=== PATIENT | male | born 1955 | race Caucasian/White ===

== ENCOUNTER 2019-01-28 16:00 | Outpatient (CLI) | payer BC | END 2019-01-28 16:01 | disposition home or self-care (01) | LOC: SLEEPLAB 16:00 | PROVIDERS: ATTEND Family Medicine | DX: G47.33 Obstructive sleep apnea (adult) (pediatric) (principal); R53.83 Other fatigue; R06.83 Snoring; F41.9 Anxiety disorder, unspecified | CPT/HCPCS: 95806 ==

== ENCOUNTER 2019-05-27 15:14 | Outpatient (CLI) | payer BC ==
--- NOTE | 2019-05-27 15:56 | ULT ---
US Renal Bilateral STANDARD: 05/27/2019 12:00 AM CLINICAL HISTORY: Chronic kidney disease. Stage III STUDY: Renal ultrasound COMPARISON: None. FINDINGS: Right kidney: Echogenicity: Normal. Masses/cysts: None. Hydronephrosis: None. Calcifications: None. Length: 10.0 cm Left kidney: Echogenicity: Normal. Masses/cysts: 1.1 cm hypoechoic region in the left kidney likely represents a cyst. Hydronephrosis: None. Calcifications: None. Length: 10.9 cm Limited visualization of the urinary bladder is unremarkable. The prostate is enlarged. IMPRESSION: Left renal cyst
== END 2019-05-27 15:15 | disposition home or self-care (01) ==
LOC: BICULT 15:14
PROVIDERS: ATTEND Family Medicine
DX: N18.3 Chronic kidney disease, stage 3 (moderate) (principal); N28.1 Cyst of kidney, acquired
CPT/HCPCS: 76770

== ENCOUNTER 2022-05-13 19:30 | Outpatient (CLI) | payer MEDICARE, OTHER | END 2022-05-13 19:31 | disposition home or self-care (01) | LOC: SLEEPLAB 19:30 | PROVIDERS: ATTEND Family Medicine | DX: G47.33 Obstructive sleep apnea (adult) (pediatric) (principal); R53.83 Other fatigue; R06.83 Snoring; F41.9 Anxiety disorder, unspecified; I48.91 Unspecified atrial fibrillation; G47.10 Hypersomnia, unspecified; G47.00 Insomnia, unspecified; G47.31 Primary central sleep apnea | CPT/HCPCS: 95810 ==

== ENCOUNTER 2022-06-05 19:30 | Outpatient (CLI) | payer MEDICARE, OTHER | END 2022-06-05 19:31 | disposition home or self-care (01) | LOC: SLEEPLAB 19:30 | PROVIDERS: ATTEND Family Medicine | DX: G47.33 Obstructive sleep apnea (adult) (pediatric) (principal); R53.83 Other fatigue; R06.83 Snoring; F41.9 Anxiety disorder, unspecified; G47.10 Hypersomnia, unspecified; E66.9 Obesity, unspecified; Z68.28 Body mass index [BMI] 28.0-28.9, adult; G47.31 Primary central sleep apnea | CPT/HCPCS: 95811 ==

== ENCOUNTER 2022-08-09 07:56 | Outpatient (CLI) | payer MEDICARE, OTHER | END 2022-08-09 07:57 | disposition home or self-care (01) | LOC: LABBT 07:56 | PROVIDERS: ATTEND Physician Assistant Medical | DX: R13.10 Dysphagia, unspecified (principal); K21.9 Gastro-esophageal reflux disease without esophagitis; Z20.822 Contact with and (suspected) exposure to COVID-19 | CPT/HCPCS: 87811 ==

== ENCOUNTER 2022-08-12 09:10 | Outpatient (CLI) | payer MEDICARE, OTHER | END 2022-08-12 09:11 | disposition home or self-care (01) | LOC: RAD 09:10 | PROVIDERS: ATTEND Physician Assistant Medical | DX: R13.10 Dysphagia, unspecified (principal); K21.9 Gastro-esophageal reflux disease without esophagitis | CPT/HCPCS: 74230 ==

== ENCOUNTER 2024-05-21 15:50 | Outpatient (CLI) | payer MEDICARE, OTHER | END 2024-05-21 15:51 | disposition home or self-care (01) | LOC: ULT 15:50 | PROVIDERS: ATTEND Urology | DX: N18.31 Chronic kidney disease, stage 3a (principal); N28.1 Cyst of kidney, acquired; N39.43 Post-void dribbling | CPT/HCPCS: 76770 ==

== ENCOUNTER 2025-01-13 06:13 | Day surgery (SDC) | payer MEDICARE, OTHER ==
[2025-01-03 09:24] VITALS: BMI 27.6
[2025-01-13] MEDS ORDERED: LevoFLOXacin D5W 500 mg (100 mL) BAG ONE (06:27)
[2025-01-13] MEDS ORDERED: Lidocaine 1% MPF 2 ML VIAL ONE (06:27)
[2025-01-13] MEDS ORDERED: Ondansetron PF 4 MG/2 ML Vial ONE (07:01)
[2025-01-13] MEDS ORDERED: Lidocaine 2% PF 5 ML VIAL ONE (07:01)
[2025-01-13] MEDS ORDERED: Dexamethasone 4 mg/ml Vial ONE (07:01)
[2025-01-13] MEDS ORDERED: PROPOFOL 20 ML ONE (07:01)
[2025-01-13] MEDS ORDERED: fentaNYL PF 100 MCG/2 ML SYRINGE ONE (07:01)
[2025-01-13] MEDS ORDERED: Midazolam HCl 2 mg/2 ml Vial ONE (07:34)
[2025-01-13] MEDS ORDERED: ePHEDrine Sulfate 50 MG/10 ML VIAL ONE (07:56)
[2025-01-13] MEDS ORDERED: Glycopyrrolate 0.2 MG/ML 5 ML SYRINGE ONE (08:12)
[2025-01-13] MEDS ORDERED: fentaNYL 50 mcg/mL 1 mL Vial ONE (09:11)
[2025-01-13] MEDS ORDERED: Oxybutynin 5 MG TAB ONE (10:17)
[2025-01-13] MEDS ORDERED: Phenazopyridine HCl 100 MG TAB ONE (10:17)
== END 2025-01-13 14:10 | disposition home or self-care (01) ==
LOC: SDC 06:13
PROVIDERS: ATTEND Urology
PROC: 0VT08ZZ Resection of Prostate, Via Natural or Artificial Opening Endoscopic (ICD-10-PCS; principal; 2025-01-13)
DX: N40.1 Benign prostatic hyperplasia with lower urinary tract symptoms (principal); N13.8 Other obstructive and reflux uropathy; N41.0 Acute prostatitis; I48.0 Paroxysmal atrial fibrillation; I12.9 Hypertensive chronic kidney disease with stage 1 through stage 4 chronic kidney disease, or unspecified chronic kidney disease; N18.31 Chronic kidney disease, stage 3a; R97.20 Elevated prostate specific antigen [PSA]; F32.A Depression, unspecified; F41.9 Anxiety disorder, unspecified; F34.1 Dysthymic disorder; K21.9 Gastro-esophageal reflux disease without esophagitis; Z98.890 Other specified postprocedural states; Z88.8 Allergy status to other drugs, medicaments and biological substances; Z79.899 Other long term (current) drug therapy
CPT/HCPCS: 52601; A4333; J1100; J1956; J2250; J2405; J2704; J3010; 88305